=== PATIENT | male | born 1965 | race Caucasian/White ===

== ENCOUNTER 2017-04-14 06:21 | Day surgery (SDC) | payer BC ==
[2017-04-09 10:27] VITALS: BMI 27.1
[2017-04-14] MEDS ORDERED: PROPOFOL 20 ML ONE (07:43)
[2017-04-14] MEDS ORDERED: SUCCINYLCHOLINE CHLORIDE 200 MG/10 ML VIAL ONE (07:44)
[2017-04-14] MEDS ORDERED: ROCURONIUM BROMIDE 50 MG/5 ML VIAL ONE (07:44)
[2017-04-14] MEDS ORDERED: MIDAZOLAM HCL 2 MG/2 ML SINGLE DOSE VIAL ONE (07:44)
[2017-04-14] MEDS ORDERED: DESFLURANE GAS 240 ML BOTTLE IH ONE (07:53)
--- NOTE | 2017-04-14 08:06 | HP ---
History & Physical Update - History History: No Change - Physical Physical: No Change - Assessment Assessment: No Change - Plan Plan: No Change
[2017-04-14] MEDS ORDERED: BUPIVACAINE HCL/PF 0.5% (5MG/ML) 10 ML VIAL ONE (08:08)
[2017-04-14] MEDS ORDERED: LIDOCAINE HCL 2% (20ML MULTI-DOSE VIAL) NR ONE (08:08)
[2017-04-14] MEDS ORDERED: BUPIVACAINE HCL/PF (5 MG/ML) 30 ML VIAL IJ ONE (08:59)
[2017-04-14] MEDS ORDERED: LIDOCAINE HCL 2% (50ML VIAL) SQ ONE (08:59)
[2017-04-14] MEDS ORDERED: DEXAMETHASONE SOD PHOSPHATE 4 MG/1 ML VIAL ONE (09:02)
[2017-04-14] MEDS ORDERED: ONDANSETRON 4 MG/2 ML VIAL ONE (09:02)
--- NOTE | 2017-04-14 09:12 | OP ---
Operative Note - Note: Operative Date: 04/14/17 Pre-Operative Diagnosis: ventral hernia Operation: repair incarcerated ventral hernia Findings: incarcerated ventral hernia Surgeon: Preet Chavez Research Programmer: Valerie Lemon Anesthesiologist/MILLING MACHINE SET UP OPERATOR: Paulo Goodman Anesthesia: General Specimens Removed: hernia sac and incarcerated preperitoneal fat Estimated Blood Loss (mls): 10
--- NOTE | 2017-04-14 09:21 | SURG ---
Surgery Mortarman Note Mortarman: Valerie Lemon PA-C Date of Service: 04/14/17 Diagnosis: ventral hernia Procedure: repair incarcerated ventral hernia I was present for the entirety of the operative procedure. For further detail, please refer to operative report. Visit type - Case Type Case Type: Scheduled Admission - Emergency Emergency Visit: No - New patient This patient is new to me today: Yes Date on this admission: 04/14/17
[2017-04-14] MEDS ORDERED: ONDANSETRON 4 MG/2 ML VIAL IVPUSH PRN (09:24)
[2017-04-14] MEDS ORDERED: oxyCODONE HCL 5 MG TABLET PO PRN (09:24)
[2017-04-14] MEDS ORDERED: LACTATED RINGERS SOLUTION 1,000 ML IV SCH (09:30)
[2017-04-14 11:29] VITALS: TEMP 97.5
[2017-04-14] MEDS ORDERED: oxyCODONE HCL 5 MG TABLET ONE (12:21)
[2017-04-14 13:35] VITALS: BP 134/76; PULSE 58
--- NOTE | 2017-04-15 15:18 | PATH ---
Surgical Pathology Report Patient Name: YAKELIN ANTUNEZ [facility]. Rec. #: [id number] /Age/Gender: 1965 (Age: 51) / M Account: [id number] Location: [facility] Taken: 04/14/2017 Received: 04/14/2017 Reported: 04/15/2017 Physicians: Preet Chavez MD Specimen(s) Received HERNIA SAC AND FAT Clinical History Hernia, abdominal pain Final Diagnosis HERNIA SAC AND FAT, OPEN VENTRAL HERNIA REPAIR: FIBROADIPOSE TISSUE AND SCANT FIBROMEMBRANOUS TISSUE CONSISTENT WITH HERNIA SAC AND CONTENTS. Electronically Signed Kate Rodriguez M.D. Gross Description Received in formalin labeled "hernia sac and fat," is a 5.0 x 3.5 x 1.7 cm portion of li-pink fibromembranous tissue with attached fat, consistent with a hernia sac. A data entry representative section is submitted in one cassette. 04/14/201704/14/2017
== END 2017-04-14 13:30 | disposition home or self-care (01) ==
LOC: JASU-SURG 06:21
PROVIDERS: ATTEND Surgery
PROC: 0WQF0ZZ Repair Abdominal Wall, Open Approach (ICD-10-PCS; principal; 2017-04-14 08:00)
DX: K43.6 Other and unspecified ventral hernia with obstruction, without gangrene (principal)
CPT/HCPCS: 88302-TC; 94760

== ENCOUNTER 2017-05-07 14:24 | Emergency (ER) | payer BC ==
--- NOTE | 2017-05-07 14:49 | PDOC ---
Rapid Medical Evaluation Time Seen by Provider: 05/07/17 14:46 Medical Evaluation: Allergies Allergy/AdvReac Type Severity Reaction Status Date / Time No Known Drug Allergies Allergy Verified 05/07/17 14:46 05/07/17 14:47 I have performed a brief in person evaluation of this patient. The patient presents with chief complaint of : cecy need to be removed from abdomen placed on May 15 after having stomach surgery at this hospital. . Pt has no complaints. Pertinent PE findings: abdomen with vertical laceration with intact cecy . I have ordered the following: none The patient will proceed to the ER for further evaluation.
[2017-05-07 14:59] VITALS: BP 145/72; PULSE 64; TEMP 98.6; BMI 28.5
--- NOTE | 2017-05-07 16:30 | PDOC ---
Suture Removal/Wound Check HPI <Sandra Mosquera - Last Filed: 05/07/17 16:28> - History of Present Illness History Source: Yes: Patient Exam Limitations: Yes: No Limitations - Onset of Previous Treatment Comment:: 05/07/17 18:34 Patient is a 52 year old male with a significant past medical history of who presents to the ED for removal of abdominal cecy. Patient reports getting hernia repair April 14, and was administered cecy. He reports coming to the ED for staple removal after thinking he was supposed to wait for call from surgeon to instruct him to come in. As per patient's retail pharmacist, patient was instructed to come in for staple removal 8 days following his procedure. Patient states he has an appointment with Dr. Chavez next thursday. Denies chest pain, Sob. Denies nausea, vomiting. Denies fevers, chills. Denies abdominal pain. Denies change in appetite, constipation, diarrhea. Denies any other symptoms. Allergies: None Social history: No smoking. No alcohol. No alcohol. Surgical history: Hernia repair s/p 1 month. PMD: Dr. Landry Other provider: Dr. Chavez <Daryl Welch - Last Filed: 05/07/17 18:35> - History of Present Illness Chief Complaint: Suture/Staple Removal (other) Stated Complaint: SENT BY PCP Time Seen by Provider: 05/07/17 14:46 Past History - Past Medical History Anemia: No Asthma: No Cancer: No Cardiac Disorders: No CVA: No COPD: No CHF: No DVT: No Dementia: No Diabetes: No GI Disorders: No Disorders: No HTN: No Hypercholesterolemia: No Liver Disease: No Seizures: No Thyroid Disease: No - Surgical History Abdominal Surgery: Yes (HERNIA REPAIR) Orthopedic Surgery: Yes (RIGHT KNEE x3) - Suicide/Smoking/Psychosocial Hx Smoking History: Never smoked Have you smoked in the past 12 months: No Hx Alcohol Use: No Drug/Substance Use Hx: No Substance Use Type: None Hx Substance Use Treatment: No <aSndra Mosquera - Last Filed: 05/07/17 16:28> <Daryl Welch - Last Filed: 05/07/17 18:35> - Past Medical History Allergies/Adverse Reactions: Allergies Allergy/AdvReac Type Severity Reaction Status Date / Time No Known Drug Allergies Allergy Verified 05/07/17 14:46 Home Medications: Ambulatory Orders NK [No Known Home Medication] 05/07/17 Suture Removal/Wound Check PE - Physical Exam Comments: GENERAL: Awake, alert, and fully oriented, in no acute distress ABDOMEN: Soft, nontender, normoactive bowel sounds. No guarding, no rebound. No masses. +Healing midline surgical wound with [address] NEUROLOGICAL: Cranial nerves II through XII grossly intact. Normal speech, normal gait SKIN: Warm, Dry, normal turgor, no rashes. <Sandra Mosquera - Last Filed: 05/07/17 16:28> Procedures - Additional Procedures Progress: Fourteen cecy removed without incident. No bleeding. Wound is healing well except one area in the center, less than 1 cm. Appears to have opened during the healing process, but it is now healing. <Sandra Mosquera - Last Filed: 05/07/17 16:28> *DC/Admit/Observation/Transfer - Discharge Dispostion Admit: No <Sandra Mosquera - Last Filed: 05/07/17 16:28> - Attestations Scribe Attestion: 05/07/17 18:35 Documentation prepared by Daryl Welch, acting as bilingual medical assistant for Sandra Mosquera MD, /DO. <Daryl Welch - Last Filed: 05/07/17 18:35> Diagnosis at time of Disposition: Removal of staple - Discharge Dispostion Disposition: HOME Condition at time of disposition: Stable - Referrals Referrals: Eris Landry MD [Primary Care Provider] - - Patient Instructions Printed Discharge Instructions: DI for Suture Removal - Post Discharge Activity
== END 2017-05-07 16:53 | disposition home or self-care (01) ==
LOC: JER 14:24
DX: Z48.02 Encounter for removal of sutures (principal)
CPT/HCPCS: 99281-25